=== PATIENT | male | born 1960 | race Two or more races ===

== ENCOUNTER 2021-02-13 09:22 | Emergency (ER) | payer MEDICAID, OTHER ==
[~2021-02-13] VITALS: Ht 175.3 cm; Wt 95.3 kg
[~2021-02-13 09:22] MED LIST: SULF400T11 PO
[2021-02-13 14:20] VITALS: BP 117/82
== END 2021-02-13 14:20 | disposition home or self-care (01) ==
LOC: ER 09:22
DX: S09.8XXA Other specified injuries of head, initial encounter (principal); R42 Dizziness and giddiness; E11.9 Type 2 diabetes mellitus without complications; Y08.89XA Assault by other specified means, initial encounter; Y93.89 Activity, other specified; Y92.89 Other specified places as the place of occurrence of the external cause; Y99.8 Other external cause status
CPT/HCPCS: 70450

== ENCOUNTER 2022-12-10 10:51 | Emergency (ER) | payer MEDICAID ==
[~2022-12-10] VITALS: Ht 177.8 cm; Wt 95.4 kg
[2022-12-10 15:18] VITALS: BP 108/62; PULSE 98; RESP 16; TEMP 97.8; O2SAT 98
[2022-12-10] MEDS ORDERED: DexAMETHasone SOD PHOS 10MG/1ML VIAL INJ IM ONE (16:00)
[2022-12-10] MEDS ORDERED: cefTRIAXone SOD 1,000 MG VL IM ONE (16:00)
[2022-12-10] MEDS ORDERED: AUG875T PO (16:02)
[2022-12-10] MEDS ORDERED: IBUP-1454 PO (16:02)
== END 2022-12-10 16:35 | disposition home or self-care (01) ==
LOC: ER 10:51
DX: R59.0 Localized enlarged lymph nodes (principal); E78.5 Hyperlipidemia, unspecified; E11.9 Type 2 diabetes mellitus without complications; K80.20 Calculus of gallbladder without cholecystitis without obstruction; Z90.49 Acquired absence of other specified parts of digestive tract; Z88.8 Allergy status to other drugs, medicaments and biological substances; Z79.1 Long term (current) use of non-steroidal anti-inflammatories (NSAID); Z79.899 Other long term (current) drug therapy
CPT/HCPCS: 70490; 71045; 96372; 99285; J0696; J1100

== ENCOUNTER 2022-12-17 14:22 | Emergency (ER) | payer MEDICAID ==
[~2022-12-17] VITALS: Ht 177.8 cm; Wt 90.0 kg
[~2022-12-17 14:22] MED LIST changes: +AUG875T PO; +IBUP-1454 PO
[2022-12-17 16:01] LABS: Basophils # (auto) 0.1 10 ^3/uL (0-0.2); Basophils % (auto) 1.1 % (0.0-2.0); Eosinophils # (auto) 0.5 10 ^3/uL (0-0.8)
[2022-12-17 16:02] LABS: Eosinophils % (auto) 4.2 % (0.0-7.0); Lymphocytes # (auto) 2.6 10 ^3/uL (0.4-5.4); Lymphocytes % (auto) 23.7 % (10.0-50.0); Mean Corpuscular Hemoglobin 31.4 pg (28.0-32.0); Mean Corpuscular Hgb Conc. 34.7 g/dL (32.0-36.0); Mean Corpuscular Volume 90.6 fL (80.0-100.0); Monocytes # (auto) 0.8 10 ^3/uL (0-1.3); Monocytes % (auto) 6.9 % (0.0-12.0); Neutrophils % (auto) 64.1 % (37.0-80.0); Nucleated Red Blood Cells % 0.1 %; Red Blood Cells 5.41 10^6/uL (4.5-5.90); Red Cell Distribution Width 13.3 % (11.8-14.3)
[2022-12-17 16:19] LABS: Alanine Aminotransferase 16 U/L (7-40); Albumin 4.1 g/dL (3.2-4.8); Alkaline Phosphatase 78 U/L (46-116); Anion Gap 9 (5-15); Aspartate Aminotransferase 11 U/L (13-40); BUN/Creatinine Ratio 10.5 (10.0-20.0); Blood Urea Nitrogen 12 mg/dL (9-23); Calcium 9.3 mg/dL (8.5-10.1); Carbon Dioxide 27 mmol/L (20-30); Chloride 99 mmol/L (98-107); Glucose 296 mg/dL (74-106); Sodium 135 mmol/L (136-145)
[2022-12-17 16:20] LABS: Bilirubin, Total 0.7 mg/dL (0.2-1.0); Total Protein 8.4 g/dL (5.7-8.2)
[2022-12-17 18:13] VITALS: PULSE 90; RESP 16; O2SAT 97
[2022-12-17] MEDS ORDERED: CLINDAMYCIN 900MG IV 50 ML IV ONE (19:00)
[2022-12-17 19:30] VITALS: PULSE 87; RESP 18; O2SAT 95
[2022-12-17] MEDS ORDERED: VANCOMYCIN 1GM/250ML 250 ML IV ONE (20:15)
[2022-12-17 20:32] VITALS: BP 130/85; PULSE 83; RESP 13; TEMP 98.9; O2SAT 94
== END 2022-12-17 21:43 | disposition short-term general hospital (02) ==
LOC: ER 14:22
DX: R59.0 Localized enlarged lymph nodes (principal); J36 Peritonsillar abscess; K11.8 Other diseases of salivary glands; I10 Essential (primary) hypertension; E11.9 Type 2 diabetes mellitus without complications; E78.5 Hyperlipidemia, unspecified; Z90.49 Acquired absence of other specified parts of digestive tract; Z79.1 Long term (current) use of non-steroidal anti-inflammatories (NSAID); Z79.2 Long term (current) use of antibiotics; Z79.899 Other long term (current) drug therapy; Z88.0 Allergy status to penicillin; Z88.8 Allergy status to other drugs, medicaments and biological substances
CPT/HCPCS: 36415; 70486; 70490; 80053; 85025; 87040; 93005; 96365; 99285; J3370

== ENCOUNTER 2024-09-15 12:19 | Emergency (ER) | payer MEDICAID, OTHER ==
[~2024-09-15] VITALS: Ht 182.9 cm; Wt 113.0 kg
[2024-09-15 12:26] VITALS: BP 0/0; PULSE 0; RESP 0; TEMP 94; O2SAT 0
--- NOTE | 2024-09-15 12:39 | ED.PDOC ---
CPR-HPI HPI Comments 78 y/o M, JACQUELINE, presents to the ED for CC of cardiac arrest. EMS reports, patient is coming from home where emergency medical personal was called d/t patient going non-responsive after c/o dizziness. EMS relays, prior to their arrival on scene patient was given CPR by family members for approximately 20 min. In route to the ED, patient was given continued CPR and x6 epinephrin with no change in rhythm, staying asystole. Patient arrival to the ED at 1219, and was moved to ER bed 7 for further care as per ALS protocol. Time Seen by MD: 12:19 Reviewed Notes: Nurses Notes, History Professor Notes, Medications, Allergies Allergies: Coded Allergies: Citric Acid (Verified Allergy, Unknown, 02/22/22) Penicillins (Verified Allergy, Unknown, 12/17/22) Home Meds Active Scripts Ibuprofen (Ibuprofen) 600 Mg Tab, 1 TAB PO TID for 7 Days, #21 TAB 0 Refills Prov:TARA WILLIAM [facility] 12/10/22 Amoxicillin & Pot Clavulanate (AUGMENTIN TABLET) 875 Mg Tb, 875 MG PO BID for 14 Days, #28 TAB 0 Refills Prov:TARA WILLIAM HOME [employer]ER 12/10/22 Reported Medications Sulfamethoxazole-Trimethoprim (Bactrim) 1 Tab Tab, 1 TAB PO, TAB 05/26/13 Information Source: Emergency Med Personnel Mode of Arrival: EMS Timing: Minutes Duration: Down time prior EMS: (20), Total time prior hopital: (45min) Onset: At rest Available Hx: Unknown Inital rhythm: Asystole Treatment: CPR, IV, Epinephrine Response: No response Associated signs and symptoms: None Past Medical History PAST MEDICAL HISTORY: Unknown Surgical History: Unknown Family History Family History: Unknown Social History Smoker: Unknown Alcohol: Unknown Drugs: Unknown Lives In: Home Unable to Obtain due to: Medical Urgency All Other Systems: Reviewed and Negative Physical Exam General Appearance: Severe Distress HEENT: Other (Pupils fixed and dilated) Neck: NOT DONE Respiratory: Respiratory Distress, Other (Intubated the patient) Cardiovascular: Other (No pulse) Breast Exam: Deferred Gastrointestinal: Soft Genitalia: Deferred Pelvic: Deferred Rectal: Deferred Extremities: NOT DONE Neurologic: Other (Unconscious) Cerebellar Function: NOT DONE Reflexes: NOT DONE Skin: Other (Mottled) Peripheral Pulses: 0 Radial (R); 3+ Radial (R); 0 Radial (L); 3+ Radial (L) Lymphatic: NOT DONE Was a procedure done? Was a procedure done?: Yes Sedation Sedation?: No Intubation Indication: Respiratory Insufficiency Pretreated with: Nothing Medicated with: Nothing Intubation Approach: Orotracheal Intubation size: cm (8.0 at 24cm) Informed consent obtained: Yes Risks/benefits/alt described: Yes Differential Dx CPR Differential Diagnosis: Cardiopulmonary arrest X-Ray, Labs, Meds, VS Vital Signs Date Time Temp Pulse Resp B/P (MAP) Pulse Ox O2 Delivery O2 Flow Rate FiO2 09/15/24 12:54 0 09/15/24 12:48 0 Ambu-Bag 09/15/24 12:39 Mechanical Ventilator+ 21 21 09/15/24 12:26 94.0 0 0 0/0 (0) 0 94.0 Patient unconscious. Pupils fixed and dilated. Had to intubate the patient. ACLS medications used. Continuous CPR. Mottling. Downtime more than an hour. Waiting for family. Continuous CPR. Spoke with the team. Had to pronounce the patient. Informed the family. Time of 1ST Reevaluation: 12:49 Reevaluation 1ST: Unchanged Patient Education/Counseling: Diagnosis, Treatment Family Education/Counseling: No Family Present SEPSIS Sepsis Screen Vital Signs Date Time Temp Pulse Resp B/P (MAP) Pulse Ox O2 Delivery O2 Flow Rate FiO2 09/15/24 12:54 0 09/15/24 12:48 0 Ambu-Bag 09/15/24 12:39 Mechanical Ventilator+ 21 09/15/24 12:26 94.0 0 0 0/0 (0) 0 94.0 Departure 1 Departure Time of Disposition: 13:46 Impression: Primary Impression: Respiratory failure Qualified Codes: J96.01 - Acute respiratory failure with hypoxia Disposition: 20 Condition: Other Critical Care Note Critical Care Time?: Yes (45 min-critical care time only) Heart Score Heart Score: Heart Score Response (Comments) Value History N/A 0 EKG N/A 0 Age N/A 0 Risk Factors N/A 0 Troponin N/A 0 Total 0 Stability Stability form required: No I personally scribed for FERNANDA JUAREZ MD ([email or web address]) on 09/15/24 at 12:39. Electronically submitted by Meredith [email or web address]). FERNANDA JUAREZ MD Sep 15, 2024 12:39
--- NOTE | 2024-09-15 12:48 | RESUS ---
CODE BLUE ASSESSSMENT History of Events History of Events: Patient arrived via EMS, unresponsive, apneic, and in asystole with CPR in progress. Per EMS, patient complained of dizziness prior to arrest. Family witnessed arrest and started bystander CPR. Upon EMS arrival, patient found apneic and pulseless, in asystole with CPR in progress. EMS continued CPR, attempted to intubate patient but unsuccessful. Total Epinephrine 1 mg IVP x6 given prior to arrival with no response. Patient remained in asystole. I/O to RLE. Blood sugar 320. Unknown history/medications. Approximately 55 minutes down time prior to arrival. Initial Information Date: Sep 15, 2024 Time: 12:19 Location of Arrest: ER (Bed 7) Arrest Witnessed: Yes CPR started by whom: Bystander (Family) Last seen well: Prior to EMS arrival. Pre-Hospital Care: ACLS Type of arrest: Cardiac, Respiratory, Adult, Witnessed Spontaneous Respirations: No Pulse Present: No Monitoring: ECG, Pulse Oximetry, Telemetry Crash Cart Opened and Supplies: Yes Airway Ventilation Breathing at Onset: Apneic Oxygen Delivery Method: Ambu-Bag Oxygen 15 liters Artificial Ventilation: Bag/Mask, Bag/Endo tube Intubation Time: 12:22 Intubation Size: 8.0 cuffed Intubated by: Dr. Strauss Intubation Attempts: 1 Intubated orally: Yes Intubated Nasaly: No Tube secured at: 24 Cricoid pressure done: No CO2 indicator used: Yes Confirmation: Auscultation, Exhaled CO2 Suctioning (Oral/Tracheal): No Circulation Circulation #1: Time: 12:19 Pulse Rate (adult): 0 Blood Pressure Systolic: 0 Blood Pressure Diastolic: 0 Circulation #2: Time: 12:21 Pulse Rate (adult): 0 Blood Pressure Systolic: 0 Blood Pressure Diastolic: 0 Circulation #3: Time: 12:23 Pulse Rate (adult): 0 Blood Pressure Systolic: 0 Blood Pressure Diastolic: 0 Temperature (Fahrenheit): 94.0 Circulation Comment: Temperature taken rectally. Circulation #4: Time: 12:25 Pulse Rate (adult): 0 Blood Pressure Systolic: 0 Blood Pressure Diastolic: 0 Procedure - IV Procedure - IV : IV start time: 12:22 IV Side: Right IV Location: Antecubital IV Catheter Type: Saline Lock IV Placed: In Hospital IV Placed by Arturo MANZO IV Gauge: 20 IV Line Care: Saline Flush Procedure - Intraosseous Size of intraosseous: 25 Site of Intraosseous: Tibia meg-medial (RLE) Intraosseous inserted by: EMS Medications & Response Medications and Responses #1: Medication Time: 12:21 ADULT Medications Given ADULT: Epinephrine 1 mg Route of Administration: IO Heart Rate: 0 EKG Rhythm: Asystole Blood Pressure Systolic: 0 Blood Pressure Diastolic: 0 EKG Rhythm: Asystole Medications and Responses #2: Medication Time: 12:23 ADULT Medications Given ADULT: Sodium Bacarbinate 50 meq, Calcium Chloride 10 mL Route of Administration: IV (RAC) Heart Rate: 0 EKG Rhythm: Asystole Blood Pressure Systolic: 0 Blood Pressure Diastolic: 0 EKG Rhythm: Asystole Nurses Notes [place] Coma Scale Eye Opening: None (1) [place] Coma Scale Verbal: None (1) [place] Coma Scale Motor: None (1) [place] Total: 3 Pupil Reaction: Non Reactive Bedside Blood Glucose: 340 EKG Rhythm: Asystole Nurses Notes - Comment: 0.9% NS 500ml given throughout code blue. Time Code Ended Time Code Ended: 12:25 Outcome of code: Unsuccessful Patient pronounced by: Dr. Strauss Time patient pronounced: 12:25 Family notified: Yes Code Team Present: Arden Kunz RN, Charito Kuhn SE RT, Fabiola Rausch ERTHaley RN, Kj RT, Meredith Leigh RN Post Resuscitation Neurologica Pupil Size: 4 Comment: Fixed and dilated. Meredith Hudson Sep 15, 2024 12:48
== END 2024-09-15 12:25 ==
LOC: EDUNIT# 12:19 → ER 12:19 → EDBD 12:19 → ER 12:25
DX: J96.90 Respiratory failure, unspecified, unspecified whether with hypoxia or hypercapnia (principal); I46.9 Cardiac arrest, cause unspecified; Z88.0 Allergy status to penicillin; Z88.8 Allergy status to other drugs, medicaments and biological substances
CPT/HCPCS: 31500; 92950